=== PATIENT | male | born 1950 | race African-American/Black ===

== ENCOUNTER 2018-11-15 06:20 | Inpatient (IN) ==
[2018-11-10 09:28] LABS: Basophils # 0.1 10*3/uL (0.0-0.2); Basophils % 0.8 % (0.0-0.8); Eosinophils # 0.3 10*3/uL (0.0-0.87); Eosinophils % 4.9 % (0.00-10.9); Hematocrit 47.9 VOL% (42.0-52.0); Hemoglobin 15.7 GM/DL (14.0-18.0); Immature Granulocytes % 0.6 %; Immature Granulocytes Absolute 0.04 #; Lymphocytes # 1.1 10*3/uL (1.4-4.0); Lymphocytes % 18.3 % (21.2-54.2); Mean Corpuscular HGB Conc 32.8 GM/DL (32-36); Mean Corpuscular Hemoglobin 29 PG (27-34); Mean Corpuscular Volume 87.2 FL (87-102); Mean Platelet Volume 10.9 FL (9.6-12.0); Monocytes # 0.8 10*3/uL (0.11-0.8); Monocytes % 13.5 % (1.7-12.7); Neutrophils # 3.8 10*3/uL (1.4-7.4); Neutrophils % 61.9 % (38.7-73.9); Platelet Count 227 T/CUMM (130-400); Red Blood Count 5.49 MC/CUMM (3.8-5.5); White Blood Count 6.2 T/CUMM (4-12)
[2018-11-10 09:52] LABS: Calcium 9.6 MG/DL (8.5-10.1); Osmolality,Calculated 301.1 MOS/KG (273-304); Potassium 3.7 MMOL/L (3.5-5.1)
[2018-11-15] MEDS ORDERED: DIAZEPAM 5 MG TABLET PO ONE (07:00)
[2018-11-15] MEDS ORDERED: FAMOTIDINE 20 MG TABLET PO ONE (07:00)
[2018-11-15] MEDS ORDERED: DIAZEPAM 5 MG TABLET ONE (07:41)
[2018-11-15] MEDS ORDERED: FAMOTIDINE 20 MG TABLET ONE (07:42)
[2018-11-15] MEDS ORDERED: ceFAZolin 1,000 MG VIAL ONE (07:46)
[2018-11-15] MEDS: SODIUM CHLORIDE 0.9% 1,000 ML IV SCH (07:52)
[2018-11-15] MEDS ORDERED: ceFAZolin 1,000 MG in SYRINGE 1 EACH IV ONE (08:00)
[2018-11-15] MEDS ORDERED: HEPARIN 5,000 UNIT/1 ML VIAL ONE (08:32)
[2018-11-15] MEDS ORDERED: LIDOCAINE 1% 20 ML VIAL ONE (08:32)
[2018-11-15] MEDS ORDERED: HEPARIN/NACL 0.9% 2 UNITS/ML 500 ML IV ONE (08:57)
[2018-11-15] MEDS ORDERED: NITROGLYCERIN DRIP 50 MG/250 ML BOTTLE IV ONE (08:57)
[2018-11-15] MEDS ORDERED: PHENYLEPHRINE DRIP 20 MG/250 ML PREMIX IV ONE (08:57)
[2018-11-15] MEDS ORDERED: ONDANSETRON 4 MG/2 ML VIAL IV PRN ×2 (10:28→10:58)
[2018-11-15] MEDS ORDERED: NALOXONE 0.4 MG/ML VIAL IV PRN (10:28)
[2018-11-15] MEDS ORDERED: GLUCAGON 1 MG VIAL IM PRN (10:28)
[2018-11-15] MEDS ORDERED: HYDROmorphone 2 MG/1 ML VIAL IV PRN (10:28)
[2018-11-15] MEDS ORDERED: DEXTROSE 50% 25 GM/50 ML VIAL IV PRN (10:28)
[2018-11-15] MEDS ORDERED: oxyCODONE/ACETAMINOPHEN 5-325 MG TABLET PO PRN (10:28)
[2018-11-15] MEDS ORDERED: PROMETHAZINE 25 MG/1 ML VIAL IM PRN (10:28)
[2018-11-15] MEDS ORDERED: HEPARIN 10,000 UNIT/10 ML VIAL ONE (10:51)
[2018-11-15] MEDS ORDERED: PROPOFOL 200 MG/20 ML VIAL IV ONE (10:51)
[2018-11-15] MEDS ORDERED: ONDANSETRON 4 MG/2 ML VIAL ONE ×2 (10:51→11:09)
[2018-11-15] MEDS ORDERED: SEVOFLURANE 1 UNIT/15 MINUTE INH ONE (10:51)
[2018-11-15] MEDS ORDERED: fentaNYL 100 MCG/2 ML VIAL ONE (10:51)
[2018-11-15] MEDS ORDERED: SODIUM CHLORIDE 0.9% 1,000 ML IV ONE (10:52)
[2018-11-15] MEDS ORDERED: ROCURONIUM 100 MG/10 ML VIAL IV ONE (10:52)
[2018-11-15] MEDS ORDERED: NEOSTIGMINE 10 MG/10 ML VIAL ONE (10:52)
[2018-11-15] MEDS ORDERED: PROTAMINE SULFATE 50 MG/5 ML VIAL IV ONE (10:52)
[2018-11-15] MEDS ORDERED: GLYCOPYRROLATE 0.4 MG/2 ML VIAL ONE (10:52)
[2018-11-15] MEDS ORDERED: HYDROmorphone 2 MG/1 ML VIAL ONE (11:09)
[2018-11-15] MEDS: HYDROmorphone 2 MG/1 ML VIAL IV PRN ×6 (11:13→23:55)
[2018-11-15] MEDS: LACTATED RINGERS 1,000 ML IV SCH ×2 (12:14→21:02)
[2018-11-15] MEDS: PHENYLEPHRINE DRIP 40 MG/250 ML PREMIX IV SCH (12:22)
[2018-11-15] MEDS: NITROPRUSSIDE 100 MG in DEXTROSE 5% 250 ML IV SCH (12:22)
[2018-11-15] MEDS: ALBUTEROL 2.5 MG/3 ML NEB RESP TX SCH ×2 (13:32→19:33)
[2018-11-15] MEDS ORDERED: KETOROLAC 30 MG/1 ML VIAL IV ONE (16:41)
[2018-11-15] MEDS: FUROSEMIDE 80 MG TABLET PO SCH (17:16)
[2018-11-15] MEDS: oxyCODONE/ACETAMINOPHEN 5-325 MG TABLET PO PRN (20:41)
[2018-11-15] MEDS: CARVEDILOL 25 MG TABLET PO SCH (20:41)
[2018-11-15] MEDS: POTASSIUM CHLORIDE 10 MEQ TABLET PO SCH (20:45)
[2018-11-16] MEDS: ALBUTEROL 2.5 MG/3 ML NEB RESP TX SCH ×4 (01:26→19:24)
[2018-11-16] MEDS ORDERED: NITROPRUSSIDE 50 MG/2 ML VIAL ONE (03:07)
[2018-11-16] MEDS: NITROPRUSSIDE 100 MG in DEXTROSE 5% 250 ML IV SCH ×2 (03:19→09:33)
[2018-11-16] MEDS: LACTATED RINGERS 1,000 ML IV SCH (06:32)
[2018-11-16] MEDS: SODIUM CHLORIDE 0.9% 1,000 ML IV SCH (07:08)
[2018-11-16] MEDS ORDERED: DEXTROSE 50% 25 GM/50 ML VIAL IV PRN (08:05)
[2018-11-16] MEDS ORDERED: GLUCAGON 1 MG VIAL IM PRN (08:05)
[2018-11-16] MEDS: FUROSEMIDE 80 MG TABLET PO SCH ×2 (08:27→15:05)
[2018-11-16] MEDS: POTASSIUM CHLORIDE 10 MEQ TABLET PO SCH ×2 (08:28→21:03)
[2018-11-16] MEDS: ATORVASTATIN 40 MG TABLET PO SCH (08:28)
[2018-11-16] MEDS: ASPIRIN EC 81 MG TABLET PO SCH (08:28)
[2018-11-16] MEDS: CARVEDILOL 25 MG TABLET PO SCH ×2 (08:28→21:03)
[2018-11-16] MEDS: CLOPIDOGREL 75 MG TABLET PO SCH (08:28)
[2018-11-16] MEDS: ALLOPURINOL 100 MG TABLET PO SCH (08:28)
[2018-11-16] MEDS: FELODIPINE 5 MG TABLET PO SCH (08:29)
[2018-11-16] MEDS: PHENYLEPHRINE DRIP 40 MG/250 ML PREMIX IV SCH (09:31)
[2018-11-16] MEDS: INSULIN REGULAR 100 UNIT/ML SUBCUT SCH ×3 (12:00→21:03)
[2018-11-16] MEDS: oxyCODONE/ACETAMINOPHEN 5-325 MG TABLET PO PRN ×2 (13:06→19:20)
[2018-11-17] MEDS: ALBUTEROL 2.5 MG/3 ML NEB RESP TX SCH ×4 (01:11→20:55)
[2018-11-17] MEDS: INSULIN REGULAR 100 UNIT/ML SUBCUT SCH ×4 (07:16→20:40)
[2018-11-17] MEDS: oxyCODONE/ACETAMINOPHEN 5-325 MG TABLET PO PRN ×3 (08:15→20:46)
[2018-11-17] MEDS: POTASSIUM CHLORIDE 10 MEQ TABLET PO SCH ×2 (08:16→20:40)
[2018-11-17] MEDS: FELODIPINE 5 MG TABLET PO SCH (08:16)
[2018-11-17] MEDS: CARVEDILOL 25 MG TABLET PO SCH ×2 (08:16→20:42)
[2018-11-17] MEDS: FUROSEMIDE 80 MG TABLET PO SCH ×2 (08:16→15:18)
[2018-11-17] MEDS: ATORVASTATIN 40 MG TABLET PO SCH (08:17)
[2018-11-17] MEDS: ALLOPURINOL 100 MG TABLET PO SCH (08:17)
[2018-11-17] MEDS: CLOPIDOGREL 75 MG TABLET PO SCH (08:17)
[2018-11-17] MEDS: ASPIRIN EC 81 MG TABLET PO SCH (08:17)
[2018-11-17] MEDS: NITROPRUSSIDE 100 MG in DEXTROSE 5% 250 ML IV SCH (10:29)
[2018-11-18] MEDS: ALBUTEROL 2.5 MG/3 ML NEB RESP TX SCH ×2 (00:17→06:59)
[2018-11-18] MEDS: oxyCODONE/ACETAMINOPHEN 5-325 MG TABLET PO PRN (05:40)
[2018-11-18] MEDS ORDERED: metOLazone 5 MG TABLET PO SCH (09:00)
[2018-11-18] MEDS: POTASSIUM CHLORIDE 10 MEQ TABLET PO SCH (09:04)
[2018-11-18] MEDS: FUROSEMIDE 80 MG TABLET PO SCH (09:04)
[2018-11-18] MEDS: ASPIRIN EC 81 MG TABLET PO SCH (09:04)
[2018-11-18] MEDS: CLOPIDOGREL 75 MG TABLET PO SCH (09:04)
[2018-11-18] MEDS: ATORVASTATIN 40 MG TABLET PO SCH (09:04)
[2018-11-18] MEDS: CARVEDILOL 25 MG TABLET PO SCH (09:04)
[2018-11-18] MEDS: ALLOPURINOL 100 MG TABLET PO SCH (09:04)
[2018-11-18] MEDS: FELODIPINE 5 MG TABLET PO SCH (09:05)
[2018-11-18] MEDS: INSULIN REGULAR 100 UNIT/ML SUBCUT SCH (09:05)
[2018-11-18 11:15] VITALS: BP 158/58
== END 2018-11-18 12:35 | disposition home health service (06) | DRG 38 ==
LOC: N.SDSINP 06:20 → N.ICU 10:54 → N.3E 11-16 12:58
PROVIDERS: ADMIT Surgery; ATTEND Surgery

== ENCOUNTER 2021-02-15 12:21 | Inpatient (IN) ==
[2021-02-15 14:06] LABS: Basophils % 0.6 % (0.0-0.8); Eosinophils % 0.8 % (0.00-10.9); Hematocrit 33.5 VOL% (42.0-52.0); Hemoglobin 10.5 GM/DL (14.0-18.0); Immature Granulocytes % 0.4 %; Immature Granulocytes Absolute 0.02 #; Lymphocytes # 0.5 10*3/uL (1.4-4.0); Lymphocytes % 9.7 % (21.2-54.2); Mean Corpuscular HGB Conc 31.3 GM/DL (32-36); Mean Corpuscular Volume 84.6 FL (87-102); Mean Platelet Volume 10.2 FL (9.6-12.0); Monocytes % 11.6 % (1.7-12.7); Neutrophils % 76.9 % (38.7-73.9); Platelet Count 284 T/CUMM (130-400); Red Blood Count 3.96 MC/CUMM (3.8-5.5); Red Cell Distribution Width 16.2 % (9.3-17.3); White Blood Count 5.3 T/CUMM (4-12)
[2021-02-15 14:28] LABS: Albumin 3.7 G/DL (3.4-5.0); Bilirubin,Total 1.6 MG/DL (0.2-1.0); Calcium 9.7 MG/DL (8.5-10.1); Osmolality,Calculated 309.4 MOS/KG (273-304); Total Protein 7.6 G/DL (6.4-8.2)
[2021-02-15 14:35] LABS: Potassium 7.9 MMOL/L (3.5-5.1)
[2021-02-15] MEDS ORDERED: DEXTROSE 50% 25 GM/50 ML VIAL IV STA (14:35)
[2021-02-15] MEDS ORDERED: ALBUTEROL 2.5 MG/3 ML NEB RESP TX STA (14:35)
[2021-02-15] MEDS ORDERED: INSULIN REGULAR 100 UNIT/ML IV STA (14:36)
[2021-02-15] MEDS ORDERED: SODIUM POLYSTYRENE SULFATE 15 GM/60 ML BOTTLE PO STA ×2 (14:36→15:31)
[2021-02-15] MEDS ORDERED: ALUMINUM/MAGNES/SIMETH MAX STR 30 ML UDCUP PO PRN (15:31)
[2021-02-15] MEDS ORDERED: DEXTROSE 50% 25 GM/50 ML VIAL IV PRN (15:31)
[2021-02-15] MEDS ORDERED: ACETAMINOPHEN 325 MG TABLET PO PRN (15:31)
[2021-02-15] MEDS ORDERED: hydrALAZINE 20 MG/1 ML VIAL IV PRN (15:31)
[2021-02-15] MEDS ORDERED: GLUCAGON 1 MG VIAL IM PRN (15:31)
[2021-02-15] MEDS ORDERED: SIMETHICONE CHEW 125 MG TABLET PO PRN (15:31)
[2021-02-15] MEDS ORDERED: ONDANSETRON 4 MG/2 ML VIAL IV PRN (15:31)
[2021-02-15] MEDS ORDERED: ALBUTEROL 2.5 MG/3 ML NEB RESP TX PRN (15:31)
[2021-02-15] MEDS: SODIUM CHLORIDE 0.9% 1,000 ML IV SCH (16:03)
[2021-02-15] MEDS: PANTOPRAZOLE 40 MG VIAL IV SCH (16:58)
[2021-02-15] MEDS: INSULIN LISPRO 100 UNIT/ML SUBCUT SCH ×2 (16:59→20:21)
[2021-02-15] MEDS ORDERED: CALCIUM GLUCONATE 1,000 MG in SODIUM CHLORIDE 0.9% 100 ML IV ONE (18:00)
[2021-02-15 18:20] LABS: Potassium 6.2 MMOL/L (3.5-5.1)
[2021-02-15] MEDS: ALBUTEROL 2.5 MG/3 ML NEB RESP TX SCH ×2 (19:14→22:14)
[2021-02-15 20:00] LABS: Bacteria,Urine Occasional /HPF (Few); Bilirubin,Urine Negative (Negative); Blood, Urine Negative (Negative); Glucose,Urine (UA) Negative (Negative); Hyaline Casts,Urine 3 /LPF (0-3); Ketones,Urine Negative (Negative); Mucus,Urine Occasional /LPF (Occasional); Nitrite,Urine Negative (Negative); Protein,Urine Negative; RBC,Urine 2 /HPF (0-4); Urine Appearance CLEAR (Clear); Urine Color Yellow (Yellow); Urine Urobilinogen < 2.0 EU/DL (0.2-1.0)
[2021-02-15] MEDS: ATORVASTATIN 20 MG TABLET PO SCH (20:21)
[2021-02-15] MEDS: BUDESONIDE/FORMOTEROL 160-4.5 INHALER 6 GM INH SCH (20:21)
[2021-02-15] MEDS ORDERED: SODIUM ZIRCONIUM CYCLOSILICATE 10 GM PACK PO SCH (21:00)
[2021-02-15] MEDS ORDERED: APIXABAN 2.5 MG TABLET PO SCH (21:00)
[2021-02-16 00:24] LABS: Calcium 9.6 MG/DL (8.5-10.1); Osmolality,Calculated 320.4 MOS/KG (273-304); Potassium 4.8 MMOL/L (3.5-5.1)
[2021-02-16] MEDS: ALBUTEROL 2.5 MG/3 ML NEB RESP TX SCH ×4 (01:00→10:04)
[2021-02-16 04:15] LABS: Basophils % 0.3 % (0.0-0.8); Eosinophils # 0.1 10*3/uL (0.0-0.87); Hemoglobin 9.2 GM/DL (14.0-18.0); Immature Granulocytes % 0.3 %; Immature Granulocytes Absolute 0.02 #; Lymphocytes # 0.3 10*3/uL (1.4-4.0); Lymphocytes % 4.6 % (21.2-54.2); Mean Corpuscular HGB Conc 31.7 GM/DL (32-36); Mean Corpuscular Volume 84.1 FL (87-102); Mean Platelet Volume 9.8 FL (9.6-12.0); Monocytes % 1.6 % (1.7-12.7); NRBC # 0.02 10*3/uL; Neutrophils % 92.2 % (38.7-73.9); Platelet Count 213 T/CUMM (130-400); Red Blood Count 3.45 MC/CUMM (3.8-5.5); Red Cell Distribution Width 16.3 % (9.3-17.3); White Blood Count 6.1 T/CUMM (4-12)
[2021-02-16 05:21] LABS: Risk Ratio 2.53; VLDL CHOLESTEROL 13.4 MG/DL
[2021-02-16 05:47] LABS: Anisocytosis 1+; Eosinophils 1 % (0-10); Lymphocytes 6 % (20-55); Platelet Estimate Normal; Segmented Neutrophils 91 % (50-85); Target Cells Few; Total Cells Counted 100
[2021-02-16 05:48] LABS: Helmet Cells Slight
[2021-02-16] MEDS: SODIUM CHLORIDE 0.9% 1,000 ML IV SCH ×2 (06:44→09:39)
[2021-02-16 07:09] LABS: Calcium 9.1 MG/DL (8.5-10.1); Osmolality,Calculated 317.5 MOS/KG (273-304); Potassium 3.9 MMOL/L (3.5-5.1)
[2021-02-16] MEDS: BUDESONIDE/FORMOTEROL 160-4.5 INHALER 6 GM INH SCH ×2 (08:33→21:01)
[2021-02-16] MEDS: FINASTERIDE 5 MG TABLET PO SCH (08:33)
[2021-02-16] MEDS: INSULIN LISPRO 100 UNIT/ML SUBCUT SCH ×4 (08:34→21:00)
[2021-02-16] MEDS: ASPIRIN EC 81 MG TABLET PO SCH (08:42)
[2021-02-16 12:44] LABS: Calcium 9.2 MG/DL (8.5-10.1); Osmolality,Calculated 311.8 MOS/KG (273-304); Potassium 3.9 MMOL/L (3.5-5.1)
[2021-02-16] MEDS: PANTOPRAZOLE 40 MG VIAL IV SCH (16:31)
[2021-02-16] MEDS: ATORVASTATIN 20 MG TABLET PO SCH (21:01)
[2021-02-17] MEDS: SODIUM CHLORIDE 0.9% 1,000 ML IV SCH ×2 (05:46→20:41)
[2021-02-17 06:06] LABS: Basophils % 0.4 % (0.0-0.8); Eosinophils # 0.1 10*3/uL (0.0-0.87); Eosinophils % 2.3 % (0.00-10.9); Hematocrit 27.3 VOL% (42.0-52.0); Hemoglobin 8.4 GM/DL (14.0-18.0); Immature Granulocytes % 0.8 %; Immature Granulocytes Absolute 0.04 #; Lymphocytes # 0.7 10*3/uL (1.4-4.0); Lymphocytes % 13.1 % (21.2-54.2); Mean Corpuscular HGB Conc 30.8 GM/DL (32-36); Mean Corpuscular Volume 85.3 FL (87-102); Mean Platelet Volume 10.5 FL (9.6-12.0); Monocytes % 16.3 % (1.7-12.7); Neutrophils % 67.1 % (38.7-73.9); Platelet Count 172 T/CUMM (130-400); Red Cell Distribution Width 16.3 % (9.3-17.3); White Blood Count 5.3 T/CUMM (4-12)
[2021-02-17 06:17] LABS: Calcium 8.9 MG/DL (8.5-10.1); Osmolality,Calculated 310.7 MOS/KG (273-304); Potassium 3.6 MMOL/L (3.5-5.1)
[2021-02-17 06:30] LABS: Eosinophils 2 % (0-10); Hypochromasia 1+; Lymphocytes 12 % (20-55); Microcytosis 1+; Platelet Estimate Adequate; Segmented Neutrophils 76 % (50-85); Total Cells Counted 100
[2021-02-17] MEDS: INSULIN LISPRO 100 UNIT/ML SUBCUT SCH ×4 (07:43→20:09)
[2021-02-17] MEDS: FINASTERIDE 5 MG TABLET PO SCH (08:30)
[2021-02-17] MEDS: ASPIRIN EC 81 MG TABLET PO SCH (08:30)
[2021-02-17] MEDS: BUDESONIDE/FORMOTEROL 160-4.5 INHALER 6 GM INH SCH ×2 (09:32→20:42)
[2021-02-17 10:19] LABS: Albumin 3.3 G/DL (3.4-5.0); Bilirubin,Direct 0.43 MG/DL (0.0-0.20); Bilirubin,Indirect 0.6 MG/DL (0.0-1.0); Total Protein 6.9 G/DL (6.4-8.2)
[2021-02-17] MEDS: PANTOPRAZOLE 40 MG VIAL IV SCH (15:57)
[2021-02-17] MEDS: ATORVASTATIN 20 MG TABLET PO SCH (20:36)
[2021-02-17] MEDS: BISACODYL 5 MG TABLET PO PRN (20:41)
[2021-02-18 04:38] LABS: Basophils % 0.5 % (0.0-0.8); Eosinophils # 0.1 10*3/uL (0.0-0.87); Eosinophils % 2.3 % (0.00-10.9); Hematocrit 27.3 VOL% (42.0-52.0); Hemoglobin 8.7 GM/DL (14.0-18.0); Immature Granulocytes % 0.5 %; Immature Granulocytes Absolute 0.02 #; Lymphocytes # 0.4 10*3/uL (1.4-4.0); Lymphocytes % 10.1 % (21.2-54.2); Mean Corpuscular HGB Conc 31.9 GM/DL (32-36); Mean Corpuscular Volume 83.5 FL (87-102); Mean Platelet Volume 10.6 FL (9.6-12.0); Monocytes % 17.7 % (1.7-12.7); Neutrophils % 68.9 % (38.7-73.9); Platelet Count 164 T/CUMM (130-400); Red Blood Count 3.27 MC/CUMM (3.8-5.5); Red Cell Distribution Width 16.1 % (9.3-17.3); White Blood Count 4.3 T/CUMM (4-12)
[2021-02-18 04:49] LABS: Calcium 8.6 MG/DL (8.5-10.1); Osmolality,Calculated 308.8 MOS/KG (273-304); Potassium 3.4 MMOL/L (3.5-5.1)
[2021-02-18 05:12] LABS: Eosinophils 1 % (0-10); Hypochromasia 1+; Lymphocytes 10 % (20-55); Segmented Neutrophils 72 % (50-85); Total Cells Counted 100
[2021-02-18 05:13] LABS: Microcytosis 1+; Ovalocytes Slight; Platelet Estimate Adequate
[2021-02-18] MEDS: ASPIRIN EC 81 MG TABLET PO SCH (10:26)
[2021-02-18] MEDS: FINASTERIDE 5 MG TABLET PO SCH (10:26)
[2021-02-18] MEDS: INSULIN LISPRO 100 UNIT/ML SUBCUT SCH ×4 (10:26→20:34)
[2021-02-18] MEDS: TAMSULOSIN 0.4 MG CAPSULE PO SCH (10:27)
[2021-02-18] MEDS: BUDESONIDE/FORMOTEROL 160-4.5 INHALER 6 GM INH SCH ×2 (10:27→20:35)
[2021-02-18] MEDS ORDERED: POTASSIUM CHLORIDE 10 MEQ TABLET PO ONE (14:48)
[2021-02-18] MEDS: PANTOPRAZOLE 40 MG VIAL IV SCH (15:31)
[2021-02-18] MEDS: SODIUM CHLORIDE 0.9% 1,000 ML IV SCH (20:34)
[2021-02-18] MEDS: ATORVASTATIN 20 MG TABLET PO SCH (20:34)
[2021-02-19 05:12] LABS: Basophils % 0.5 % (0.0-0.8); Eosinophils # 0.1 10*3/uL (0.0-0.87); Eosinophils % 2.1 % (0.00-10.9); Hematocrit 27.6 VOL% (42.0-52.0); Hemoglobin 8.7 GM/DL (14.0-18.0); Immature Granulocytes % 0.7 %; Immature Granulocytes Absolute 0.03 #; Lymphocytes # 0.6 10*3/uL (1.4-4.0); Lymphocytes % 14.8 % (21.2-54.2); Mean Corpuscular HGB Conc 31.5 GM/DL (32-36); Mean Corpuscular Volume 83.9 FL (87-102); Mean Platelet Volume 10.4 FL (9.6-12.0); Monocytes % 13.5 % (1.7-12.7); NRBC # 0.02 10*3/uL; Neutrophils % 68.4 % (38.7-73.9); Platelet Count 162 T/CUMM (130-400); Red Blood Count 3.29 MC/CUMM (3.8-5.5); Red Cell Distribution Width 16.1 % (9.3-17.3); White Blood Count 4.3 T/CUMM (4-12)
[2021-02-19 05:40] LABS: Osmolality,Calculated 311.5 MOS/KG (273-304); Potassium 3.6 MMOL/L (3.5-5.1)
[2021-02-19] MEDS: SODIUM CHLORIDE 0.9% 1,000 ML IV SCH ×2 (06:12→20:20)
[2021-02-19] MEDS: INSULIN LISPRO 100 UNIT/ML SUBCUT SCH ×4 (08:02→20:19)
[2021-02-19] MEDS: FINASTERIDE 5 MG TABLET PO SCH (08:52)
[2021-02-19] MEDS: TAMSULOSIN 0.4 MG CAPSULE PO SCH (08:52)
[2021-02-19] MEDS: BUDESONIDE/FORMOTEROL 160-4.5 INHALER 6 GM INH SCH ×2 (08:53→20:19)
[2021-02-19] MEDS: ASPIRIN EC 81 MG TABLET PO SCH (08:53)
[2021-02-19] MEDS: amLODIPine 5 MG TABLET PO SCH (10:33)
[2021-02-19] MEDS ORDERED: AZITHROMYCIN 250 MG TABLET PO ONE (13:19)
[2021-02-19] MEDS: BISACODYL 5 MG TABLET PO PRN (14:04)
[2021-02-19] MEDS: PANTOPRAZOLE 40 MG VIAL IV SCH (17:10)
[2021-02-19] MEDS: ATORVASTATIN 20 MG TABLET PO SCH (18:00)
[2021-02-20 04:58] LABS: Basophils % 0.3 % (0.0-0.8); Eosinophils # 0.1 10*3/uL (0.0-0.87); Eosinophils % 2.6 % (0.00-10.9); Hematocrit 29.1 VOL% (42.0-52.0); Hemoglobin 8.9 GM/DL (14.0-18.0); Immature Granulocytes % 0.5 %; Immature Granulocytes Absolute 0.02 #; Lymphocytes # 0.7 10*3/uL (1.4-4.0); Lymphocytes % 17.8 % (21.2-54.2); Mean Corpuscular HGB Conc 30.6 GM/DL (32-36); Mean Corpuscular Volume 84.1 FL (87-102); Mean Platelet Volume 10.2 FL (9.6-12.0); Monocytes % 13.1 % (1.7-12.7); NRBC # 0.02 10*3/uL; Neutrophils % 65.7 % (38.7-73.9); Platelet Count 174 T/CUMM (130-400); Red Blood Count 3.46 MC/CUMM (3.8-5.5); Red Cell Distribution Width 16.1 % (9.3-17.3); White Blood Count 3.9 T/CUMM (4-12)
[2021-02-20 05:29] LABS: Calcium 9.2 MG/DL (8.5-10.1); Osmolality,Calculated 308.7 MOS/KG (273-304); Potassium 3.7 MMOL/L (3.5-5.1)
[2021-02-20] MEDS: SODIUM CHLORIDE 0.9% 1,000 ML IV SCH (07:41)
[2021-02-20] MEDS: ALBUTEROL 2.5 MG/3 ML NEB RESP TX PRN ×2 (07:44→20:04)
[2021-02-20] MEDS: ASPIRIN EC 81 MG TABLET PO SCH (08:25)
[2021-02-20] MEDS: AZITHROMYCIN 250 MG TABLET PO SCH (08:25)
[2021-02-20] MEDS: BUDESONIDE/FORMOTEROL 160-4.5 INHALER 6 GM INH SCH ×2 (08:25→21:11)
[2021-02-20] MEDS: TAMSULOSIN 0.4 MG CAPSULE PO SCH (08:25)
[2021-02-20] MEDS: FINASTERIDE 5 MG TABLET PO SCH (08:25)
[2021-02-20] MEDS: amLODIPine 5 MG TABLET PO SCH (08:25)
[2021-02-20] MEDS: INSULIN LISPRO 100 UNIT/ML SUBCUT SCH ×4 (08:29→21:11)
[2021-02-20] MEDS: FUROSEMIDE 40 MG/4 ML VIAL IV SCH (08:48)
[2021-02-20] MEDS: PANTOPRAZOLE 40 MG VIAL IV SCH (16:38)
[2021-02-20] MEDS: ATORVASTATIN 20 MG TABLET PO SCH (18:04)
[2021-02-21 05:54] LABS: Basophils % 0.3 % (0.0-0.8); Hematocrit 27.6 VOL% (42.0-52.0); Hemoglobin 8.7 GM/DL (14.0-18.0); Immature Granulocytes % 0.5 %; Immature Granulocytes Absolute 0.02 #; Lymphocytes # 0.5 10*3/uL (1.4-4.0); Lymphocytes % 12.6 % (21.2-54.2); Mean Corpuscular HGB Conc 31.5 GM/DL (32-36); Mean Corpuscular Volume 82.9 FL (87-102); Mean Platelet Volume 10.3 FL (9.6-12.0); Monocytes % 10.6 % (1.7-12.7); Platelet Count 200 T/CUMM (130-400); Red Blood Count 3.33 MC/CUMM (3.8-5.5); Red Cell Distribution Width 15.9 % (9.3-17.3); White Blood Count 3.9 T/CUMM (4-12)
[2021-02-21 06:14] LABS: Calcium 9.1 MG/DL (8.5-10.1); Osmolality,Calculated 313.4 MOS/KG (273-304); Potassium 3.2 MMOL/L (3.5-5.1)
[2021-02-21] MEDS: INSULIN LISPRO 100 UNIT/ML SUBCUT SCH ×4 (08:40→20:43)
[2021-02-21] MEDS: ASPIRIN EC 81 MG TABLET PO SCH (08:41)
[2021-02-21] MEDS: FUROSEMIDE 40 MG/4 ML VIAL IV SCH (08:41)
[2021-02-21] MEDS: TAMSULOSIN 0.4 MG CAPSULE PO SCH (08:41)
[2021-02-21] MEDS: amLODIPine 5 MG TABLET PO SCH (08:41)
[2021-02-21] MEDS: FINASTERIDE 5 MG TABLET PO SCH (08:44)
[2021-02-21] MEDS: AZITHROMYCIN 250 MG TABLET PO SCH (08:49)
[2021-02-21] MEDS: BUDESONIDE/FORMOTEROL 160-4.5 INHALER 6 GM INH SCH ×2 (10:00→20:43)
[2021-02-21] MEDS: amLODIPine 10 MG TABLET PO SCH (10:33)
[2021-02-21] MEDS: PANTOPRAZOLE 40 MG VIAL IV SCH (15:00)
[2021-02-21] MEDS: ATORVASTATIN 20 MG TABLET PO SCH (18:01)
[2021-02-22] MEDS: INSULIN LISPRO 100 UNIT/ML SUBCUT SCH ×5 (07:31→20:44)
[2021-02-22 08:39] LABS: Basophils % 0.5 % (0.0-0.8); Eosinophils # 0.2 10*3/uL (0.0-0.87); Eosinophils % 3.5 % (0.00-10.9); Hemoglobin 8.9 GM/DL (14.0-18.0); Immature Granulocytes % 0.5 %; Immature Granulocytes Absolute 0.02 #; Lymphocytes # 0.5 10*3/uL (1.4-4.0); Lymphocytes % 12.5 % (21.2-54.2); Mean Corpuscular HGB Conc 30.7 GM/DL (32-36); Mean Corpuscular Volume 83.1 FL (87-102); Mean Platelet Volume 10.3 FL (9.6-12.0); Monocytes % 10.2 % (1.7-12.7); Neutrophils % 72.8 % (38.7-73.9); Platelet Count 214 T/CUMM (130-400); Red Blood Count 3.49 MC/CUMM (3.8-5.5); Red Cell Distribution Width 16.1 % (9.3-17.3); White Blood Count 4.3 T/CUMM (4-12)
[2021-02-22 08:53] LABS: Calcium 9.5 MG/DL (8.5-10.1); Osmolality,Calculated 311.4 MOS/KG (273-304)
[2021-02-22] MEDS: BUDESONIDE/FORMOTEROL 160-4.5 INHALER 6 GM INH SCH ×2 (09:16→20:44)
[2021-02-22] MEDS: AZITHROMYCIN 250 MG TABLET PO SCH (09:16)
[2021-02-22] MEDS: ASPIRIN EC 81 MG TABLET PO SCH (09:16)
[2021-02-22] MEDS: amLODIPine 10 MG TABLET PO SCH (09:16)
[2021-02-22] MEDS: FINASTERIDE 5 MG TABLET PO SCH (09:16)
[2021-02-22] MEDS: TAMSULOSIN 0.4 MG CAPSULE PO SCH (09:17)
[2021-02-22] MEDS: PANTOPRAZOLE 40 MG VIAL IV SCH (15:09)
[2021-02-22] MEDS ORDERED: POTASSIUM CHLORIDE 20 MEQ TABLET PO ONE (15:51)
[2021-02-22] MEDS ORDERED: POLYETHYLENE GLYCOL POWDER 17 GM PACK PO PRN (18:02)
[2021-02-22] MEDS: ATORVASTATIN 20 MG TABLET PO SCH (20:43)
[2021-02-23 05:25] LABS: Hematocrit 26.8 VOL% (42.0-52.0); Hemoglobin 8.1 GM/DL (14.0-18.0)
[2021-02-23 05:48] LABS: Calcium 8.8 MG/DL (8.5-10.1); Osmolality,Calculated 310.3 MOS/KG (273-304); Potassium 3.2 MMOL/L (3.5-5.1)
[2021-02-23] MEDS: INSULIN LISPRO 100 UNIT/ML SUBCUT SCH ×4 (08:22→20:43)
[2021-02-23] MEDS: TAMSULOSIN 0.4 MG CAPSULE PO SCH (09:01)
[2021-02-23] MEDS: ASPIRIN EC 81 MG TABLET PO SCH (09:01)
[2021-02-23] MEDS: BUDESONIDE/FORMOTEROL 160-4.5 INHALER 6 GM INH SCH ×2 (09:01→20:23)
[2021-02-23] MEDS: amLODIPine 10 MG TABLET PO SCH (09:01)
[2021-02-23] MEDS: AZITHROMYCIN 250 MG TABLET PO SCH (09:01)
[2021-02-23] MEDS: FINASTERIDE 5 MG TABLET PO SCH (09:01)
[2021-02-23] MEDS: PANTOPRAZOLE 40 MG VIAL IV SCH (15:30)
[2021-02-23] MEDS: ATORVASTATIN 20 MG TABLET PO SCH (20:23)
[2021-02-24] MEDS: FUROSEMIDE 40 MG/4 ML VIAL IV SCH ×2 (10:06→15:32)
[2021-02-24] MEDS: INSULIN LISPRO 100 UNIT/ML SUBCUT SCH ×4 (10:06→20:43)
[2021-02-24] MEDS: ASPIRIN EC 81 MG TABLET PO SCH (10:06)
[2021-02-24] MEDS: AZITHROMYCIN 250 MG TABLET PO SCH (10:07)
[2021-02-24] MEDS: BUDESONIDE/FORMOTEROL 160-4.5 INHALER 6 GM INH SCH ×2 (10:07→20:43)
[2021-02-24] MEDS: amLODIPine 10 MG TABLET PO SCH (10:07)
[2021-02-24] MEDS: TAMSULOSIN 0.4 MG CAPSULE PO SCH (10:07)
[2021-02-24] MEDS: FINASTERIDE 5 MG TABLET PO SCH (10:07)
[2021-02-24] MEDS: PANTOPRAZOLE 40 MG VIAL IV SCH (15:34)
[2021-02-24] MEDS: ATORVASTATIN 20 MG TABLET PO SCH (20:42)
[2021-02-25 05:56] LABS: Basophils % 0.5 % (0.0-0.8); Eosinophils # 0.1 10*3/uL (0.0-0.87); Hematocrit 31.5 VOL% (42.0-52.0); Hemoglobin 9.6 GM/DL (14.0-18.0); Immature Granulocytes % 0.5 %; Immature Granulocytes Absolute 0.02 #; Lymphocytes # 0.5 10*3/uL (1.4-4.0); Mean Corpuscular HGB Conc 30.5 GM/DL (32-36); Mean Corpuscular Volume 82.5 FL (87-102); Mean Platelet Volume 9.7 FL (9.6-12.0); Monocytes % 9.5 % (1.7-12.7); Neutrophils % 74.5 % (38.7-73.9); Platelet Count 210 T/CUMM (130-400); Red Blood Count 3.82 MC/CUMM (3.8-5.5); Red Cell Distribution Width 16.3 % (9.3-17.3)
[2021-02-25 06:36] LABS: Calcium 9.6 MG/DL (8.5-10.1); Osmolality,Calculated 304.4 MOS/KG (273-304); Potassium 3.1 MMOL/L (3.5-5.1)
[2021-02-25] MEDS: INSULIN LISPRO 100 UNIT/ML SUBCUT SCH ×2 (08:13→11:51)
[2021-02-25] MEDS: AZITHROMYCIN 250 MG TABLET PO SCH (09:18)
[2021-02-25] MEDS: ASPIRIN EC 81 MG TABLET PO SCH (09:18)
[2021-02-25] MEDS: FINASTERIDE 5 MG TABLET PO SCH (09:18)
[2021-02-25] MEDS: TAMSULOSIN 0.4 MG CAPSULE PO SCH (09:18)
[2021-02-25] MEDS: FUROSEMIDE 40 MG/4 ML VIAL IV SCH (09:18)
[2021-02-25] MEDS: amLODIPine 10 MG TABLET PO SCH (09:18)
[2021-02-25] MEDS: BUDESONIDE/FORMOTEROL 160-4.5 INHALER 6 GM INH SCH (09:19)
[2021-02-25 12:15] VITALS: BP 151/50
[2021-02-25] MEDS ORDERED: AMIODARONE 200 MG TABLET PO SCH (12:30)
== END 2021-02-25 14:17 | disposition home health service (06) | DRG 686 ==
LOC: N.ED 12:21 → N.EDINP 15:31 → SUATTDRO 15:31 → N.ICU 17:08 → N.TELEN 02-16 11:04
PROVIDERS: ADMIT Internal Medicine; ATTEND Internal Medicine

== ENCOUNTER 2021-07-31 23:12 | Inpatient (IN) ==
[2021-08-01] LABS: Bilirubin,Urine Negative (Negative); Blood, Urine Negative (Negative); Glucose,Urine (UA) Negative (Negative); Hyaline Casts,Urine 3 /LPF (0-3); Ketones,Urine Negative (Negative); Mucus,Urine Occasional /LPF (Occasional); Nitrite,Urine Negative (Negative); Protein,Urine 30 MG/DL; RBC,Urine 1 /HPF (0-4); Urine Appearance CLEAR (Clear); Urine Color Yellow (Yellow); Urine Urobilinogen < 2.0 EU/DL (0.2-1.0)
[2021-08-01] MEDS ORDERED: FLUCONAZOLE INJ 200 MG/100 ML PREMIX IV ONE (00:24)
[2021-08-01 00:44] LABS: Basophils % 0.4 % (0.0-0.8); Eosinophils # 0.1 10*3/uL (0.0-0.87); Hemoglobin 9.4 GM/DL (14.0-18.0); Immature Granulocytes % 0.8 %; Immature Granulocytes Absolute 0.04 #; Lymphocytes # 0.5 10*3/uL (1.4-4.0); Lymphocytes % 9.5 % (21.2-54.2); Mean Corpuscular HGB Conc 30.3 GM/DL (32-36); Mean Corpuscular Volume 82.7 FL (87-102); Mean Platelet Volume 10.8 FL (9.6-12.0); Monocytes % 9.1 % (1.7-12.7); Neutrophils % 78.2 % (38.7-73.9); Platelet Count 242 T/CUMM (130-400); Red Blood Count 3.75 MC/CUMM (3.8-5.5); Red Cell Distribution Width 21.4 % (9.3-17.3)
[2021-08-01 00:46] LABS: Albumin 2.9 G/DL (3.4-5.0); Calcium 9.8 MG/DL (8.5-10.1); Osmolality,Calculated 289.7 MOS/KG (273-304); Potassium 4.7 MMOL/L (3.5-5.1); Total Protein 7.4 G/DL (6.4-8.2)
[2021-08-01] MEDS ORDERED: ZALEPLON 5 MG CAPSULE PO PRN (02:37)
[2021-08-01] MEDS ORDERED: GLUCAGON 1 MG VIAL IM PRN ×2 (02:37)
[2021-08-01] MEDS ORDERED: MAGNESIUM SULF RIDER 4 GM/100 ML PREMIX IV PRN (02:37)
[2021-08-01] MEDS ORDERED: ONDANSETRON 4 MG/2 ML VIAL IV PRN (02:37)
[2021-08-01] MEDS ORDERED: MAGNESIUM SULF RIDER 2 GM/50 ML PREMIX IV PRN (02:37)
[2021-08-01] MEDS ORDERED: DEXTROSE 50% 25 GM/50 ML VIAL IV PRN (02:37)
[2021-08-01] MEDS ORDERED: DEXTROSE 50% 25 GM/50 ML SYRINGE IV PRN (02:51)
[2021-08-01] MEDS: cefTRIAXone 1,000 MG in SODIUM CHLORIDE 0.9% 100 ML IV SCH (05:28)
[2021-08-01] MEDS: INSULIN REGULAR 100 UNIT/ML SUBCUT SCH ×4 (07:48→20:36)
[2021-08-01] MEDS: FUROSEMIDE 40 MG/4 ML VIAL IV SCH ×2 (09:18→17:44)
[2021-08-01] MEDS: PANTOPRAZOLE 40 MG TABLET PO SCH (09:24)
[2021-08-01 09:31] LABS: Basophils % 0.5 % (0.0-0.8); Eosinophils # 0.1 10*3/uL (0.0-0.87); Hematocrit 29.7 VOL% (42.0-52.0); Hemoglobin 8.8 GM/DL (14.0-18.0); Immature Granulocytes % 0.5 %; Immature Granulocytes Absolute 0.02 #; Lymphocytes # 0.5 10*3/uL (1.4-4.0); Lymphocytes % 11.3 % (21.2-54.2); Mean Corpuscular HGB Conc 29.6 GM/DL (32-36); Mean Corpuscular Volume 83.7 FL (87-102); Mean Platelet Volume 10.7 FL (9.6-12.0); Monocytes % 11.3 % (1.7-12.7); Neutrophils % 73.4 % (38.7-73.9); Platelet Count 231 T/CUMM (130-400); Red Blood Count 3.55 MC/CUMM (3.8-5.5); Red Cell Distribution Width 21.6 % (9.3-17.3); White Blood Count 4.4 T/CUMM (4-12)
[2021-08-01 09:49] LABS: Albumin 2.7 G/DL (3.4-5.0); Bilirubin,Total 1.3 MG/DL (0.20-1.00); Calcium 9.7 MG/DL (8.5-10.1); Osmolality,Calculated 294.4 MOS/KG (273-304); Potassium 4.3 MMOL/L (3.5-5.1)
[2021-08-01 13:00] LABS: % Iron Saturation 11.9 % (18-50)
[2021-08-01 13:09] LABS: Vitamin B12 > 2000 PG/ML (211-911)
[2021-08-01] MEDS: ZINC OXIDE PASTE 113 GM TUBE TOP SCH (20:44)
[2021-08-02] MEDS ORDERED: CETIRIZINE 10 MG TABLET PO ONE (00:11)
[2021-08-02] MEDS ORDERED: diphenhydrAMINE 50 MG/1 ML VIAL IV PRN (00:11)
[2021-08-02] MEDS: FLUCONAZOLE INJ 200 MG/100 ML PREMIX IV SCH (00:31)
[2021-08-02] MEDS: cefTRIAXone 1,000 MG in SODIUM CHLORIDE 0.9% 100 ML IV SCH (03:06)
[2021-08-02 05:24] LABS: Basophils % 0.4 % (0.0-0.8); Eosinophils # 0.1 10*3/uL (0.0-0.87); Eosinophils % 1.4 % (0.00-10.9); Hematocrit 31.6 VOL% (42.0-52.0); Hemoglobin 9.7 GM/DL (14.0-18.0); Immature Granulocytes % 0.4 %; Immature Granulocytes Absolute 0.02 #; Lymphocytes # 0.5 10*3/uL (1.4-4.0); Lymphocytes % 9.1 % (21.2-54.2); Mean Corpuscular HGB Conc 30.7 GM/DL (32-36); Mean Corpuscular Volume 83.2 FL (87-102); Mean Platelet Volume 11.3 FL (9.6-12.0); Monocytes % 10.1 % (1.7-12.7); Neutrophils % 78.6 % (38.7-73.9); Platelet Count 278 T/CUMM (130-400); Red Cell Distribution Width 21.4 % (9.3-17.3); White Blood Count 5.2 T/CUMM (4-12)
[2021-08-02 05:55] LABS: Calcium 9.6 MG/DL (8.5-10.1); Osmolality,Calculated 290.5 MOS/KG (273-304); Potassium 4.3 MMOL/L (3.5-5.1)
[2021-08-02] MEDS ORDERED: TROSPIUM 20 MG PO PRN (07:34)
[2021-08-02] MEDS: FUROSEMIDE 40 MG/4 ML VIAL IV SCH ×2 (09:19→15:58)
[2021-08-02] MEDS: INSULIN REGULAR 100 UNIT/ML SUBCUT SCH ×4 (09:19→21:21)
[2021-08-02] MEDS: ASPIRIN EC 81 MG TABLET PO SCH (09:23)
[2021-08-02] MEDS: POTASSIUM CHLORIDE 20 MEQ TABLET PO SCH ×2 (09:23→20:18)
[2021-08-02] MEDS: LEVOTHYROXINE 150 MCG TABLET PO SCH (09:23)
[2021-08-02] MEDS: PANTOPRAZOLE 40 MG TABLET PO SCH (09:23)
[2021-08-02] MEDS: MULTIVITAMIN (CENTRUM) TABLET PO SCH (09:23)
[2021-08-02] MEDS: amLODIPine 10 MG TABLET PO SCH (09:23)
[2021-08-02] MEDS: AMIODARONE 200 MG TABLET PO SCH (09:23)
[2021-08-02] MEDS: MAGNESIUM OXIDE 400 MG TABLET PO SCH (09:23)
[2021-08-02] MEDS: ZINC OXIDE PASTE 113 GM TUBE TOP SCH ×2 (09:24→20:18)
[2021-08-02] MEDS: allopurinoL 100 MG TABLET PO SCH (09:24)
[2021-08-02] MEDS: metOLazone 5 MG TABLET PO SCH (09:24)
[2021-08-02] MEDS: AXITINIB 1 MG PO SCH ×2 (11:44→20:17)
[2021-08-02] MEDS: FERRIC GLUCONATE COMPLEX 125 MG in SODIUM CHLORIDE 0.9% 100 ML IV SCH (16:02)
[2021-08-02] MEDS: ATORVASTATIN 40 MG TABLET PO SCH (20:18)
[2021-08-02] MEDS: TAMSULOSIN 0.4 MG CAPSULE PO SCH (20:18)
[2021-08-03] MEDS: FLUCONAZOLE INJ 200 MG/100 ML PREMIX IV SCH (01:40)
[2021-08-03] MEDS: cefTRIAXone 1,000 MG in SODIUM CHLORIDE 0.9% 100 ML IV SCH (02:43)
[2021-08-03] MEDS: LEVOTHYROXINE 150 MCG TABLET PO SCH (06:13)
[2021-08-03 08:45] LABS: Basophils % 0.5 % (0.0-0.8); Eosinophils % 0.7 % (0.00-10.9); Hematocrit 31.6 VOL% (42.0-52.0); Hemoglobin 9.8 GM/DL (14.0-18.0); Immature Granulocytes % 0.4 %; Immature Granulocytes Absolute 0.02 #; Lymphocytes # 0.4 10*3/uL (1.4-4.0); Lymphocytes % 7.8 % (21.2-54.2); Mean Corpuscular Volume 83.6 FL (87-102); Mean Platelet Volume 10.7 FL (9.6-12.0); Monocytes % 8.1 % (1.7-12.7); Neutrophils % 82.5 % (38.7-73.9); Platelet Count 267 T/CUMM (130-400); Red Blood Count 3.78 MC/CUMM (3.8-5.5); Red Cell Distribution Width 21.9 % (9.3-17.3); White Blood Count 5.7 T/CUMM (4-12)
[2021-08-03 09:07] LABS: Calcium 9.7 MG/DL (8.5-10.1); Osmolality,Calculated 288.7 MOS/KG (273-304); Potassium 4.6 MMOL/L (3.5-5.1)
[2021-08-03] MEDS: FUROSEMIDE 40 MG/4 ML VIAL IV SCH ×2 (09:19→16:28)
[2021-08-03] MEDS: INSULIN REGULAR 100 UNIT/ML SUBCUT SCH ×4 (09:19→20:37)
[2021-08-03] MEDS: AXITINIB 1 MG PO SCH (09:19)
[2021-08-03] MEDS: FERRIC GLUCONATE COMPLEX 125 MG in SODIUM CHLORIDE 0.9% 100 ML IV SCH (09:24)
[2021-08-03] MEDS: POTASSIUM CHLORIDE 20 MEQ TABLET PO SCH ×2 (09:28→20:08)
[2021-08-03] MEDS: metOLazone 5 MG TABLET PO SCH (09:29)
[2021-08-03] MEDS: PANTOPRAZOLE 40 MG TABLET PO SCH (09:29)
[2021-08-03] MEDS: amLODIPine 10 MG TABLET PO SCH (09:29)
[2021-08-03] MEDS: allopurinoL 100 MG TABLET PO SCH (09:30)
[2021-08-03] MEDS: MAGNESIUM OXIDE 400 MG TABLET PO SCH (09:30)
[2021-08-03] MEDS: MULTIVITAMIN (CENTRUM) TABLET PO SCH (09:30)
[2021-08-03] MEDS: AMIODARONE 200 MG TABLET PO SCH (09:30)
[2021-08-03] MEDS: ZINC OXIDE PASTE 113 GM TUBE TOP SCH ×2 (09:31→20:09)
[2021-08-03] MEDS: ACETAMINOPHEN 325 MG TABLET PO PRN (11:02)
[2021-08-03] MEDS: CIPROFLOXACIN INJ 400 MG/200 ML PREMIX IV SCH (14:16)
[2021-08-03] MEDS: ATORVASTATIN 40 MG TABLET PO SCH (20:08)
[2021-08-03] MEDS: TAMSULOSIN 0.4 MG CAPSULE PO SCH (20:08)
[2021-08-04] MEDS: FLUCONAZOLE INJ 200 MG/100 ML PREMIX IV SCH (00:13)
[2021-08-04 04:49] LABS: Basophils % 0.1 % (0.0-0.8); Eosinophils % 0.1 % (0.00-10.9); Hematocrit 33.8 VOL% (42.0-52.0); Hemoglobin 10.3 GM/DL (14.0-18.0); Immature Granulocytes % 0.6 %; Immature Granulocytes Absolute 0.04 #; Lymphocytes # 0.3 10*3/uL (1.4-4.0); Lymphocytes % 5.1 % (21.2-54.2); Mean Corpuscular HGB Conc 30.5 GM/DL (32-36); Mean Corpuscular Volume 82.4 FL (87-102); Mean Platelet Volume 10.2 FL (9.6-12.0); Monocytes % 9.1 % (1.7-12.7); NRBC # 0.02 10*3/uL; Platelet Count 296 T/CUMM (130-400); White Blood Count 6.7 T/CUMM (4-12)
[2021-08-04 05:07] LABS: Calcium 9.9 MG/DL (8.5-10.1); Osmolality,Calculated 287.7 MOS/KG (273-304); Potassium 5.3 MMOL/L (3.5-5.1)
[2021-08-04] MEDS: LEVOTHYROXINE 150 MCG TABLET PO SCH (05:52)
[2021-08-04] MEDS: INSULIN REGULAR 100 UNIT/ML SUBCUT SCH ×4 (08:22→20:19)
[2021-08-04] MEDS: CIPROFLOXACIN INJ 400 MG/200 ML PREMIX IV SCH (08:26)
[2021-08-04] MEDS: PANTOPRAZOLE 40 MG TABLET PO SCH (08:26)
[2021-08-04] MEDS: AMIODARONE 200 MG TABLET PO SCH (08:26)
[2021-08-04] MEDS: FUROSEMIDE 40 MG/4 ML VIAL IV SCH ×2 (08:26→16:24)
[2021-08-04] MEDS: MAGNESIUM OXIDE 400 MG TABLET PO SCH (08:26)
[2021-08-04] MEDS: MULTIVITAMIN (CENTRUM) TABLET PO SCH (08:27)
[2021-08-04] MEDS: amLODIPine 10 MG TABLET PO SCH (08:27)
[2021-08-04] MEDS: allopurinoL 100 MG TABLET PO SCH (08:27)
[2021-08-04] MEDS: ASPIRIN EC 81 MG TABLET PO SCH (08:27)
[2021-08-04] MEDS: metOLazone 5 MG TABLET PO SCH (08:27)
[2021-08-04] MEDS: POTASSIUM CHLORIDE 20 MEQ TABLET PO SCH (08:28)
[2021-08-04] MEDS: ZINC OXIDE PASTE 113 GM TUBE TOP SCH ×2 (08:28→20:19)
[2021-08-04] MEDS: FERRIC GLUCONATE COMPLEX 125 MG in SODIUM CHLORIDE 0.9% 100 ML IV SCH (09:51)
[2021-08-04] MEDS: ALBUTEROL/IPRATROPIUM 3 ML NEB RESP TX SCH ×2 (13:10→19:04)
[2021-08-04] MEDS: ACETAMINOPHEN 325 MG TABLET PO PRN (13:44)
[2021-08-04] MEDS: guaiFENesin/DM ER 600-30 MG TABLET PO SCH ×2 (14:44→20:13)
[2021-08-04] MEDS ORDERED: IPRATROPIUM 500 MCG/2.5 ML NEB RESP TX ONE (19:53)
[2021-08-04] MEDS ORDERED: ALBUTEROL 2.5 MG/3 ML NEB RESP TX ONE (19:53)
[2021-08-04] MEDS: TAMSULOSIN 0.4 MG CAPSULE PO SCH (20:13)
[2021-08-04] MEDS: ATORVASTATIN 40 MG TABLET PO SCH (20:14)
[2021-08-05] MEDS: FLUCONAZOLE INJ 200 MG/100 ML PREMIX IV SCH (00:14)
[2021-08-05] MEDS: ALBUTEROL/IPRATROPIUM 3 ML NEB RESP TX SCH ×4 (00:29→19:47)
[2021-08-05] MEDS: CIPROFLOXACIN INJ 400 MG/200 ML PREMIX IV SCH (01:13)
[2021-08-05] MEDS: LEVOTHYROXINE 150 MCG TABLET PO SCH (05:30)
[2021-08-05 06:38] LABS: Basophils % 0.1 % (0.0-0.8); Hematocrit 34.6 VOL% (42.0-52.0); Hemoglobin 10.9 GM/DL (14.0-18.0); Immature Granulocytes % 0.6 %; Immature Granulocytes Absolute 0.05 #; Lymphocytes # 0.3 10*3/uL (1.4-4.0); Lymphocytes % 3.2 % (21.2-54.2); Mean Corpuscular HGB Conc 31.5 GM/DL (32-36); Mean Corpuscular Volume 82.8 FL (87-102); Mean Platelet Volume 10.9 FL (9.6-12.0); Monocytes % 4.1 % (1.7-12.7); NRBC # 0.04 10*3/uL; Platelet Count 298 T/CUMM (130-400); Red Blood Count 4.18 MC/CUMM (3.8-5.5); White Blood Count 7.9 T/CUMM (4-12)
[2021-08-05 06:56] LABS: Calcium 9.8 MG/DL (8.5-10.1); Osmolality,Calculated 292.4 MOS/KG (273-304); Potassium 5.4 MMOL/L (3.5-5.1)
[2021-08-05 07:06] LABS: Anisocytosis 1+; Eosinophils 1 % (0-10); Hypochromasia 2+; Lymphocytes 3 % (20-55); Macrocytosis 1+; Nucleated Red Blood Cells 2 (0-5); Segmented Neutrophils 92 % (50-85); Target Cells Few; Total Cells Counted 100
[2021-08-05 07:07] LABS: Platelet Estimate Normal
[2021-08-05] MEDS ORDERED: SODIUM POLYSTYRENE SULFATE 15 GM/60 ML BOTTLE PO STA (07:41)
[2021-08-05] MEDS: MULTIVITAMIN (CENTRUM) TABLET PO SCH (08:35)
[2021-08-05] MEDS: PANTOPRAZOLE 40 MG TABLET PO SCH (08:36)
[2021-08-05] MEDS: AMIODARONE 200 MG TABLET PO SCH (08:36)
[2021-08-05] MEDS: MAGNESIUM OXIDE 400 MG TABLET PO SCH (08:36)
[2021-08-05] MEDS: allopurinoL 100 MG TABLET PO SCH (08:36)
[2021-08-05] MEDS: guaiFENesin/DM ER 600-30 MG TABLET PO SCH ×2 (08:36→20:40)
[2021-08-05] MEDS: metOLazone 5 MG TABLET PO SCH (08:36)
[2021-08-05] MEDS: FUROSEMIDE 40 MG/4 ML VIAL IV SCH ×2 (08:37→17:01)
[2021-08-05] MEDS ORDERED: TUBERCULIN SKIN TEST 0.1 ML SYRINGE INTRADERM ONE (08:42)
[2021-08-05] MEDS: FERRIC GLUCONATE COMPLEX 125 MG in SODIUM CHLORIDE 0.9% 100 ML IV SCH (09:15)
[2021-08-05] MEDS: INSULIN REGULAR 100 UNIT/ML SUBCUT SCH ×4 (09:16→21:10)
[2021-08-05] MEDS: amLODIPine 10 MG TABLET PO SCH (09:18)
[2021-08-05] MEDS: DOXYCYCLINE HYCLATE 100 MG CAPSULE PO SCH ×2 (09:18→20:40)
[2021-08-05] MEDS: ZINC OXIDE PASTE 113 GM TUBE TOP SCH ×2 (09:20→20:41)
[2021-08-05] MEDS: HEPARIN 5,000 UNIT/1 ML VIAL SUBCUT SCH (17:01)
[2021-08-05] MEDS: ATORVASTATIN 40 MG TABLET PO SCH (20:40)
[2021-08-05] MEDS: TAMSULOSIN 0.4 MG CAPSULE PO SCH (20:40)
[2021-08-06] MEDS: ALBUTEROL/IPRATROPIUM 3 ML NEB RESP TX SCH ×3 (01:01→12:09)
[2021-08-06 05:26] LABS: Basophils % 0.1 % (0.0-0.8); Eosinophils % 0.2 % (0.00-10.9); Hematocrit 32.4 VOL% (42.0-52.0); Hemoglobin 9.8 GM/DL (14.0-18.0); Immature Granulocytes % 0.5 %; Immature Granulocytes Absolute 0.04 #; Lymphocytes # 0.2 10*3/uL (1.4-4.0); Lymphocytes % 2.2 % (21.2-54.2); Mean Corpuscular HGB Conc 30.2 GM/DL (32-36); Mean Corpuscular Volume 83.3 FL (87-102); Mean Platelet Volume 10.6 FL (9.6-12.0); Monocytes % 5.5 % (1.7-12.7); NRBC # 0.02 10*3/uL; Neutrophils % 91.5 % (38.7-73.9); Platelet Count 268 T/CUMM (130-400); Red Blood Count 3.89 MC/CUMM (3.8-5.5); Red Cell Distribution Width 22.3 % (9.3-17.3); White Blood Count 8.2 T/CUMM (4-12)
[2021-08-06] MEDS: LEVOTHYROXINE 150 MCG TABLET PO SCH (05:31)
[2021-08-06] MEDS: HEPARIN 5,000 UNIT/1 ML VIAL SUBCUT SCH (05:32)
[2021-08-06 05:51] LABS: Hypochromasia Slight; Lymphocytes 1 % (20-55); Platelet Estimate Normal; Segmented Neutrophils 91 % (50-85); Total Cells Counted 100
[2021-08-06 05:52] LABS: Microcytosis Slight
[2021-08-06 06:00] LABS: Calcium 9.6 MG/DL (8.5-10.1); Osmolality,Calculated 293.2 MOS/KG (273-304); Potassium 4.2 MMOL/L (3.5-5.1)
[2021-08-06] MEDS: INSULIN REGULAR 100 UNIT/ML SUBCUT SCH ×2 (08:52→13:30)
[2021-08-06] MEDS: FERRIC GLUCONATE COMPLEX 125 MG in SODIUM CHLORIDE 0.9% 100 ML IV SCH (08:56)
[2021-08-06] MEDS: FUROSEMIDE 40 MG/4 ML VIAL IV SCH (08:58)
[2021-08-06] MEDS: ASPIRIN EC 81 MG TABLET PO SCH (08:58)
[2021-08-06] MEDS: metOLazone 5 MG TABLET PO SCH (08:58)
[2021-08-06] MEDS: DOXYCYCLINE HYCLATE 100 MG CAPSULE PO SCH (08:58)
[2021-08-06] MEDS: allopurinoL 100 MG TABLET PO SCH (08:58)
[2021-08-06] MEDS: MULTIVITAMIN (CENTRUM) TABLET PO SCH (08:58)
[2021-08-06] MEDS: AMIODARONE 200 MG TABLET PO SCH (08:58)
[2021-08-06] MEDS: PANTOPRAZOLE 40 MG TABLET PO SCH (08:59)
[2021-08-06] MEDS: MAGNESIUM OXIDE 400 MG TABLET PO SCH (08:59)
[2021-08-06] MEDS: amLODIPine 10 MG TABLET PO SCH (08:59)
[2021-08-06] MEDS: guaiFENesin/DM ER 600-30 MG TABLET PO SCH (08:59)
[2021-08-06] MEDS ORDERED: CIPROFLOXACIN 500 MG TABLET PO SCH (09:00)
[2021-08-06] MEDS ORDERED: FLUCONAZOLE 200 MG TABLET PO SCH (09:00)
[2021-08-06] MEDS: ZINC OXIDE PASTE 113 GM TUBE TOP SCH (11:58)
[2021-08-06 14:22] VITALS: BP 129/57
[2021-08-06] MEDS ORDERED: hydrALAZINE 25 MG TABLET PO SCH (15:00)
[2021-08-06] MEDS ORDERED: carvediloL 3.125 MG TABLET PO SCH (21:00)
[2021-08-07] MEDS ORDERED: ISOSORBIDE MONONITRATE 30 MG TABLET PO SCH (09:00)
== END 2021-08-06 13:40 | disposition swing bed (61) | DRG 291 ==
LOC: EDUNIT# → N.ED 23:12 → N.EDINP 23:12 → SUATTDRO 08-01 02:37 → N.EDINP 08-01 04:24 → N.2W 08-01 04:54 → N.2E 08-06 11:55
PROVIDERS: ADMIT Internal Medicine; ATTEND Internal Medicine

== ENCOUNTER 2021-08-18 14:20 | Inpatient (IN) ==
[2021-08-18] MEDS ORDERED: SODIUM CHLORIDE 0.9% 500 ML IV STA ×2 (18:55→22:12)
[2021-08-18 20:38] LABS: Basophils % 0.1 % (0.0-0.8); Eosinophils % 0.1 % (0.00-10.9); Hematocrit 29.5 VOL% (42.0-52.0); Hemoglobin 9.1 GM/DL (14.0-18.0); Immature Granulocytes % 0.8 %; Immature Granulocytes Absolute 0.06 #; Lymphocytes # 0.4 10*3/uL (1.4-4.0); Lymphocytes % 5.5 % (21.2-54.2); Mean Corpuscular HGB Conc 30.8 GM/DL (32-36); Mean Corpuscular Volume 83.1 FL (87-102); Mean Platelet Volume 10.6 FL (9.6-12.0); Neutrophils % 82.5 % (38.7-73.9); Platelet Count 223 T/CUMM (130-400); Red Blood Count 3.55 MC/CUMM (3.8-5.5); Red Cell Distribution Width 22.7 % (9.3-17.3); White Blood Count 7.6 T/CUMM (4-12)
[2021-08-18 21:07] LABS: INR 1.1; PT Patient Result 12.4 SECS (10.5-12.0)
[2021-08-18 21:13] LABS: Alanine Aminotransferase 48 U/L (16-61); Albumin 2.4 G/DL (3.4-5.0); Alkaline Phosphatase 91 U/L (45-117); Aspartate Amino Transferase 25 U/L (0-37); Blood Urea Nitrogen 128 MG/DL (7-18); Calcium 9.1 MG/DL (8.5-10.1); Carbon Dioxide 25 MMOL/L (21-32); Estimated Glom Filtration Rate 13 ML/MIN; Glucose 119 MG/DL (74-106); Osmolality,Calculated 307.4 MOS/KG (273-304); Potassium 5.6 MMOL/L (3.5-5.1); Sodium 133 MMOL/L (136-145); Total Protein 6.8 G/DL (6.4-8.2)
[2021-08-18 21:59] LABS: Barbiturates Screen,Urine Negative (Negative); Benzodiazepines Screen,Urine Negative (Negative); Cannabinoid Screen,Urine Negative (Negative); Opiate Screen,Urine Negative (Negative); Phencyclidine Screen,Urine Negative (Negative)
[2021-08-18 22:01] LABS: Bacteria,Urine Occasional /HPF (Few); Bilirubin,Urine Negative (Negative); Blood, Urine Negative (Negative); Glucose,Urine (UA) Negative (Negative); Hyaline Casts,Urine 22 /LPF (0-3); Ketones,Urine Negative (Negative); Mucus,Urine Occasional /LPF (Occasional); Nitrite,Urine Negative (Negative); Protein,Urine 30 MG/DL; RBC,Urine 2 /HPF (0-4); Urine Appearance CLEAR (Clear); Urine Color Amber (Yellow); Urine Specific Gravity 1.016 (1.001-1.035); Urine Urobilinogen < 2.0 EU/DL (0.2-1.0)
[2021-08-18 23:39] LABS: ABG Base Excess 2.7 MMOL/L (-2.5-2.5); ABG HCO3 26.7 MMOL/L (20-26); ABG Oxygen Saturation 92.5 % (95-100); ABG PCO2 43.1 MM HG (35-48); ABG PH 7.414 (7.35-7.45); ABG PO2 66.8 MM HG (80-95); ABG TCO2 25.3 MMOL/L (23-27)
[2021-08-18] MEDS ORDERED: ONDANSETRON 4 MG/2 ML VIAL IV PRN (23:39)
[2021-08-18] MEDS ORDERED: ACETAMINOPHEN 325 MG TABLET PO PRN (23:39)
[2021-08-18] MEDS ORDERED: MORPHINE 2 MG/1 ML SYRINGE IV PRN (23:39)
[2021-08-18] MEDS ORDERED: DEXTROSE 50% 25 GM/50 ML SYRINGE IV PRN (23:39)
[2021-08-18] MEDS ORDERED: GLUCAGON 1 MG VIAL IM PRN (23:39)
[2021-08-19] MEDS: FUROSEMIDE 40 MG/4 ML VIAL IV SCH ×3 (00:30→17:39)
[2021-08-19] MEDS ORDERED: SODIUM POLYSTYRENE SULFATE 15 GM/60 ML BOTTLE PO ONE (01:43)
[2021-08-19] MEDS ORDERED: ALBUTEROL 2.5 MG/3 ML NEB RESP TX PRN (01:47)
[2021-08-19 04:04] LABS: Basophils % 0.1 % (0.0-0.8); Eosinophils % 0.1 % (0.00-10.9); Hematocrit 28.8 VOL% (42.0-52.0); Hemoglobin 8.9 GM/DL (14.0-18.0); Immature Granulocytes % 0.4 %; Immature Granulocytes Absolute 0.03 #; Lymphocytes # 0.4 10*3/uL (1.4-4.0); Lymphocytes % 4.9 % (21.2-54.2); Mean Corpuscular HGB Conc 30.9 GM/DL (32-36); Mean Corpuscular Volume 82.8 FL (87-102); Mean Platelet Volume 10.8 FL (9.6-12.0); Monocytes % 8.3 % (1.7-12.7); Neutrophils % 86.2 % (38.7-73.9); Platelet Count 215 T/CUMM (130-400); Red Blood Count 3.48 MC/CUMM (3.8-5.5); Red Cell Distribution Width 22.6 % (9.3-17.3)
[2021-08-19 04:26] LABS: Eosinophils 2 % (0-10); Hypochromasia 1+; Lymphocytes 9 % (20-55); Microcytosis 1+; Platelet Estimate Adequate; Segmented Neutrophils 77 % (50-85); Total Cells Counted 100
[2021-08-19 04:28] LABS: Albumin 2.3 G/DL (3.4-5.0); Bilirubin,Total 0.8 MG/DL (0.20-1.00); Calcium 9.2 MG/DL (8.5-10.1); Osmolality,Calculated 308.2 MOS/KG (273-304); Potassium 5.3 MMOL/L (3.5-5.1); Total Protein 6.8 G/DL (6.4-8.2)
[2021-08-19] MEDS: INSULIN LISPRO 100 UNIT/ML SUBCUT SCH ×4 (10:08→23:02)
[2021-08-19] MEDS: ENOXAPARIN 30 MG/0.3 ML SYRINGE SUBCUT SCH (10:16)
[2021-08-19] MEDS: hydrALAZINE 25 MG TABLET PO SCH ×3 (10:44→21:54)
[2021-08-19] MEDS: AMIODARONE 200 MG TABLET PO SCH (12:27)
[2021-08-19] MEDS: ISOSORBIDE MONONITRATE 30 MG TABLET PO SCH (12:27)
[2021-08-19] MEDS: PANTOPRAZOLE 40 MG TABLET PO SCH (12:27)
[2021-08-19] MEDS: carvediloL 3.125 MG TABLET PO SCH ×2 (12:27→21:54)
[2021-08-19] MEDS: SODIUM HYPOCHLORITE 0.25% IRRIG 473 ML BOTTLE TOP SCH (17:28)
[2021-08-19] MEDS ORDERED: VANCOMYCIN INJ 1,000 MG in SODIUM CHLORIDE 0.9% 250 ML IV STA (17:58)
[2021-08-19] MEDS ORDERED: cefTRIAXone 1,000 MG in SODIUM CHLORIDE 0.9% 100 ML IV SCH (18:00)
[2021-08-19] MEDS ORDERED: PIPERACILLIN/TAZOBACTAM 3.375 MG in SODIUM CHLORIDE 0.9% 100 ML IV SCH (18:00)
[2021-08-19] MEDS ORDERED: SODIUM CHLORIDE 0.9% 1,000 ML IV SCH (18:00)
[2021-08-19] MEDS ORDERED: VANCOMYCIN INJ 1,750 MG in SODIUM CHLORIDE 0.9% 500 ML IV ONE (21:00)
[2021-08-19] MEDS: ATORVASTATIN 40 MG TABLET PO SCH (21:54)
[2021-08-20 04:49] LABS: Basophils % 0.4 % (0.0-0.8); Eosinophils % 0.4 % (0.00-10.9); Hematocrit 29.4 VOL% (42.0-52.0); Immature Granulocytes % 0.6 %; Immature Granulocytes Absolute 0.05 #; Lymphocytes # 0.4 10*3/uL (1.4-4.0); Lymphocytes % 4.9 % (21.2-54.2); Mean Corpuscular HGB Conc 30.6 GM/DL (32-36); Mean Corpuscular Volume 84.2 FL (87-102); Mean Platelet Volume 10.6 FL (9.6-12.0); Monocytes % 7.3 % (1.7-12.7); Neutrophils % 86.4 % (38.7-73.9); Platelet Count 226 T/CUMM (130-400); Red Blood Count 3.49 MC/CUMM (3.8-5.5); White Blood Count 8.2 T/CUMM (4-12)
[2021-08-20 05:17] LABS: Hypochromasia Slight; Lymphocytes 2 % (20-55); Microcytosis Slight; Platelet Estimate Normal; Segmented Neutrophils 98 % (50-85); Target Cells Slight; Total Cells Counted 100
[2021-08-20 05:31] LABS: Calcium 9.5 MG/DL (8.5-10.1); Osmolality,Calculated 309.1 MOS/KG (273-304); Potassium 4.6 MMOL/L (3.5-5.1)
[2021-08-20] MEDS: PANTOPRAZOLE 40 MG TABLET PO SCH (08:54)
[2021-08-20] MEDS: carvediloL 3.125 MG TABLET PO SCH ×2 (08:54→20:52)
[2021-08-20] MEDS: AMIODARONE 200 MG TABLET PO SCH (08:54)
[2021-08-20] MEDS: ISOSORBIDE MONONITRATE 30 MG TABLET PO SCH (08:54)
[2021-08-20] MEDS: FUROSEMIDE 40 MG/4 ML VIAL IV SCH ×2 (08:55→16:30)
[2021-08-20] MEDS: hydrALAZINE 25 MG TABLET PO SCH ×3 (08:55→20:53)
[2021-08-20] MEDS: ENOXAPARIN 30 MG/0.3 ML SYRINGE SUBCUT SCH (08:57)
[2021-08-20] MEDS: PIPERACILLIN/TAZOBACTAM 3.375 MG in SODIUM CHLORIDE 0.9% 100 ML IV SCH ×2 (09:07→20:46)
[2021-08-20] MEDS: SODIUM HYPOCHLORITE 0.25% IRRIG 473 ML BOTTLE TOP SCH (09:07)
[2021-08-20] MEDS: INSULIN LISPRO 100 UNIT/ML SUBCUT SCH ×4 (09:46→20:51)
[2021-08-20 10:27] LABS: ABG Base Excess 2.7 MMOL/L (-2.5-2.5); ABG HCO3 26.7 MMOL/L (20-26); ABG Oxygen Saturation 88.4 % (95-100); ABG PCO2 40.1 MM HG (35-48); ABG PH 7.437 (7.35-7.45); ABG PO2 56.7 MM HG (80-95)
[2021-08-20] MEDS ORDERED: GLYCOPYRROLATE 0.4 MG/2 ML VIAL ONE (11:58)
[2021-08-20] MEDS ORDERED: propofoL 200 MG/20 ML VIAL IV ONE (11:58)
[2021-08-20] MEDS ORDERED: KETAMINE 500 MG/10 ML VIAL ONE (11:58)
[2021-08-20] MEDS ORDERED: LIDOCAINE 2% 5 ML VIAL ONE (11:58)
[2021-08-20] MEDS ORDERED: SODIUM CHLORIDE 0.9% 250 ML IV SCH (12:30)
[2021-08-20] MEDS: ATORVASTATIN 40 MG TABLET PO SCH (20:52)
[2021-08-21 07:13] LABS: Basophils % 0.2 % (0.0-0.8); Eosinophils # 0.1 10*3/uL (0.0-0.87); Eosinophils % 0.8 % (0.00-10.9); Hematocrit 30.9 VOL% (42.0-52.0); Hemoglobin 9.4 GM/DL (14.0-18.0); Immature Granulocytes % 0.6 %; Immature Granulocytes Absolute 0.04 #; Lymphocytes # 0.4 10*3/uL (1.4-4.0); Lymphocytes % 6.3 % (21.2-54.2); Mean Corpuscular HGB Conc 30.4 GM/DL (32-36); Mean Corpuscular Volume 84.9 FL (87-102); Mean Platelet Volume 10.6 FL (9.6-12.0); Monocytes % 7.5 % (1.7-12.7); Neutrophils % 84.6 % (38.7-73.9); Platelet Count 250 T/CUMM (130-400); Red Blood Count 3.64 MC/CUMM (3.8-5.5); Red Cell Distribution Width 23.3 % (9.3-17.3); White Blood Count 6.7 T/CUMM (4-12)
[2021-08-21 07:29] LABS: Calcium 9.9 MG/DL (8.5-10.1); Osmolality,Calculated 310.8 MOS/KG (273-304); Uric Acid 8.9 MG/DL (3.5-7.2)
[2021-08-21] MEDS: INSULIN LISPRO 100 UNIT/ML SUBCUT SCH ×2 (07:31→11:42)
[2021-08-21] MEDS: PANTOPRAZOLE 40 MG TABLET PO SCH (08:26)
[2021-08-21] MEDS: PIPERACILLIN/TAZOBACTAM 3.375 MG in SODIUM CHLORIDE 0.9% 100 ML IV SCH (09:20)
[2021-08-21] MEDS: METOPROLOL TARTRATE 5 MG/5 ML VIAL IV SCH ×2 (09:21→11:28)
[2021-08-21] MEDS: SODIUM HYPOCHLORITE 0.25% IRRIG 473 ML BOTTLE TOP SCH (09:21)
[2021-08-21] MEDS: FUROSEMIDE 40 MG/4 ML VIAL IV SCH (09:21)
[2021-08-21] MEDS: ENOXAPARIN 30 MG/0.3 ML SYRINGE SUBCUT SCH (09:21)
[2021-08-21 12:25] VITALS: BP 119/55
== END 2021-08-21 15:00 | DRG 981 ==
LOC: EDBD → EDUNIT# → N.ED 14:20 → N.EDINP 23:39 → SUATTDRO 23:39 → N.TELES 08-19 19:38
PROVIDERS: ADMIT Internal Medicine; ATTEND Internal Medicine